=== PATIENT | female | born 1945 | race American Indian/Alaskan Native ===

== ENCOUNTER 2017-07-05 11:01 | Emergency (ER) | payer MEDICARE ==
[2017-07-05 11:09] VITALS: BP 139/88
--- NOTE | 2017-07-05 13:59 | Emergency Department Report ---
- General Chief complaint: Skin/Abscess/Foreign Body Stated complaint: LEFT LEG INJURY Time Seen by Provider: 07/05/17 13:24 Source: patient Mode of arrival: Ambulatory Limitations: No Limitations - History of Present Illness Initial comments: 71-year-old female past medical history diabetes, hypertension, heart cholesterol presents with complaint of abrasion sustained to right anterior sarkar one week ago. Patient states it has been healing slowly and is slightly concerned that it may be infected. Patient denies fevers chills nausea or vomiting. Patient states she has been cleaning it daily with iodine and Did place Neosporin over it. Patient states that she developed a slight rash around site of wound and is concerned she may be allergic to Neosporin. Patient denies any other symptoms. Visible healing laceration/deep abrasion to right anterior sarkar approximately 3-4 cm in length. She states her tetanus vaccine is up-to-date. Patient denies any pain or discharge or foul odor at site of wound. MD complaint: lesion Onset/Timin -: week(s) Location: LLE Severity scale (0 -10): 0 Improves with: none Worsens with: none Context: none Associated symptoms: denies other symptoms Treatments Prior to Arrival: antibiotic, other (iodine) - Related Data Previous Rx's Medication Instructions Recorded Last Taken Type Cephalexin [Keflex] 500 mg PO BID #14 capsule 07/05/17 Unknown Rx Allergies Allergy/AdvReac Type Severity Reaction Status Date / Time bacitracin Allergy Rash Verified 07/05/17 11:10 [From Neosporin ([id number])] neomycin Allergy Rash Verified 07/05/17 11:10 [From Neosporin ([id number])] polymyxin B Allergy Rash Verified 07/05/17 11:10 [From Neosporin ([id number])] Abscess Boil HPI - HPI Chief Complaint: Skin/Abscess/Foreign Body Stated Complaint: LEFT LEG INJURY Time Seen by Provider: 07/05/17 13:24 Home Medications: Previous Rx's Medication Instructions Recorded Last Taken Type Cephalexin [Keflex] 500 mg PO BID #14 capsule 07/05/17 Unknown Rx Allergies/Adverse Reactions: Allergies Allergy/AdvReac Type Severity Reaction Status Date / Time bacitracin Allergy Rash Verified 07/05/17 11:10 [From Neosporin ([id number])] neomycin Allergy Rash Verified 07/05/17 11:10 [From Neosporin ([id number])] polymyxin B Allergy Rash Verified 07/05/17 11:10 [From Neosporin ([id number])] ED Review of Systems ROS: Stated complaint: LEFT LEG INJURY Other details as noted in HPI Constitutional: denies: chills, fever Eyes: denies: eye pain, eye discharge, vision change ENT: denies: ear pain, throat pain Respiratory: denies: cough, shortness of breath, wheezing Cardiovascular: denies: chest pain, palpitations Endocrine: no symptoms reported Gastrointestinal: denies: abdominal pain, nausea, diarrhea Genitourinary: denies: urgency, dysuria, discharge Musculoskeletal: denies: back pain, joint swelling, arthralgia Skin: as per HPI (deep abrasion to her right anterior sarkar one-week ago). denies: rash, lesions Neurological: denies: headache, weakness, paresthesias Psychiatric: denies: anxiety, depression Hematological/Lymphatic: denies: easy bleeding, easy bruising ED Past Medical Hx - Past Medical History Previous Medical History?: Yes Hx Hypertension: Yes Hx Diabetes: Yes Additional medical history: High cholesterol - Surgical History Past Surgical History?: Yes Additional Surgical History: hysterectomy - Social History Smoking Status: Former Smoker Substance Use Type: Prescribed - Medications Home Medications: Home Medications Medication Instructions Recorded Confirmed Last Taken Type Cephalexin [Keflex] 500 mg PO BID #14 capsule 07/05/17 Unknown Rx ED Physical Exam - General Limitations: No Limitations General appearance: alert, in no apparent distress - Head Head exam: Present: atraumatic, normocephalic - Eye Eye exam: Present: normal appearance - ENT ENT exam: Present: mucous membranes moist - Neck Neck exam: Present: normal inspection - Respiratory Respiratory exam: Present: normal lung sounds bilaterally. Absent: respiratory distress - Cardiovascular Cardiovascular Exam: Present: regular rate, normal rhythm. Absent: systolic murmur, diastolic murmur, rubs, gallop - GI/Abdominal GI/Abdominal exam: Present: soft, normal bowel sounds - Extremities Exam Extremities exam: Present: normal inspection - Expanded Lower Extremity Exam Right Lower Leg exam: Present: abrasion (healing deep abrasion approximately 3-4 cm in length right anterior sarkar) Neuro vascular tendon exam: Present: no vascular compromise Gait: Positive: observed and normal 1 - Diagonal abrasion here. Appears to be granulating - Back Exam Back exam: Present: normal inspection - Neurological Exam Neurological exam: Present: alert, oriented X3, CN II-XII intact, normal gait - Psychiatric Psychiatric exam: Present: normal affect, normal mood - Skin Skin exam: Present: warm, dry, intact, normal color. Absent: rash ED Course Vital Signs 07/05/17 11:06 Temperature 98.5 F Pulse Rate 80 Respiratory 16 Rate Blood Pressure 139/88 O2 Sat by Pulse 96 Oximetry ED Medical Decision Making - Medical Decision Making A/P: Deep abrasion 1-tetanus vaccine up-to-date 2-topical wound care 3-course of Keflex 4- I educated patient on signs and symptoms of cellulitis and abscesses. I advised her to return to the ED for any fevers chills erythema nausea vomiting or pain at site of wound. I informed patient that as she is diabetic she may experience some delayed wound healing however wound currently appears to be healing well with no overt signs of infection. Critical care attestation.: If time is entered above; I have spent that time in minutes in the direct care of this critically ill patient, excluding procedure time. ED Disposition Clinical Impression: Abrasion of right lower leg Qualifiers: Encounter type: initial encounter Qualified Code(s): S80.811A - Abrasion, right lower leg, initial encounter Leg wound, right Qualifiers: Encounter type: initial encounter Qualified Code(s): S81.801A - Unspecified open wound, right lower leg, initial encounter Disposition: TO HOME OR SELFCARE Is pt being admited?: No Does the pt Need Aspirin: No Condition: Stable Instructions: Acute Wound Care (ED), Wound Healing and Your Diet (ED) Prescriptions: Cephalexin [Keflex] 500 mg PO BID #14 capsule Referrals: [facility] [Other] - 3-5 Days [facility] [Outside] - 3-5 Days Time of Disposition: 14:03
== END 2017-07-05 14:08 | disposition home or self-care (01) ==
LOC: ED 11:01
DX: S80.811A Abrasion, right lower leg, initial encounter (principal); S81.801A Unspecified open wound, right lower leg, initial encounter; I10 Essential (primary) hypertension; E11.9 Type 2 diabetes mellitus without complications; X58.XXXA Exposure to other specified factors, initial encounter; Y93.89 Activity, other specified; Y92.89 Other specified places as the place of occurrence of the external cause; Y99.8 Other external cause status
CPT/HCPCS: 99282